=== PATIENT | female | born 1985 | race Caucasian/White ===

== ENCOUNTER 2017-07-19 11:21 | Inpatient (IN) | payer OTHER ==
[~2017-07-19] VITALS: Ht 157.5 cm; Wt 77.1 kg
[2017-07-19] MEDS ORDERED: MAGNESIUM HYDROXIDE 30 ML LIQUID UDC PO PRN (13:15)
[2017-07-19] MEDS ORDERED: LOPERAMIDE HCL 2 MG CAPSULE PO PRN ×2 (13:15)
[2017-07-19] MEDS ORDERED: DICYCLOMINE HCL 20 MG TABLET PO PRN (13:15)
[2017-07-19] MEDS ORDERED: BUPRENORPHINE HCL 2 MG TAB.SUBL SL PRN (13:15)
[2017-07-19] MEDS ORDERED: ONDANSETRON 4 MG/2 ML VIAL IM PRN (13:15)
[2017-07-19] MEDS ORDERED: NICOTINE 14 MG/24HR PATCH TD PRN (13:15)
[2017-07-19] MEDS ORDERED: MIRALAX 17 GM POWD.PACK PO PRN (13:15)
[2017-07-19] MEDS ORDERED: ACETAMINOPHEN 325 MG TABLET PO PRN (13:15)
[2017-07-19] MEDS ORDERED: MAG HYDROX/AL HYDROX/SIMETH 30 ML LIQUID UDC PO PRN (13:15)
[2017-07-19] MEDS ORDERED: ONDANSETRON ODT 4 MG TAB.RAPDIS SL PRN (13:15)
[2017-07-19] MEDS ORDERED: CEPH500C2 PO (13:31)
[2017-07-19] MEDS ORDERED: SULF1TAB48 PO (13:31)
[2017-07-19] MEDS ORDERED: IBUP-1953 PO (13:31)
[2017-07-19] MEDS ORDERED: HYDR-3028 PO (13:31)
[2017-07-19 13:45] LABS: *URINE HCG, QUAL NEGATIVE (NEGATIVE)
[2017-07-19 13:56] LABS: *AMPHETAMINE, URINE NEGATIVE (NEGATIVE); *BARBITURATE, URINE POSITIVE (NEGATIVE); *CANNABINOID, URINE NEGATIVE (NEGATIVE); *COCCAINE, URINE NEGATIVE (NEGATIVE); *OPIATE, URINE POSITIVE (NEGATIVE); *PHENCYCLIDINE SCREEN,URINE NEGATIVE (NEGATIVE)
[2017-07-19] MEDS: METHOCARBAMOL 750 MG TABLET PO PRN (14:51)
[2017-07-19] MEDS: CLONIDINE HCL 0.1 MG TABLET PO PRN (14:51)
[2017-07-19] MEDS: BUPRENORPHINE HCL 2 MG TAB.SUBL SL SCH ×3 (14:54→20:22)
--- NOTE | 2017-07-19 14:55 | NUR ---
ADMISSION NOTE Pt is a 31 year old female, admitted on 07/19/17 at 1300 for Heroin and Meth medically supervised withdrawals. Pts skin and body check completed, no contraband found, Pt has a rash all over body with treatment prescribed. Pt awake, alert, oriented x 4, gait steady, pt is ambulatory without assistance. Pt weights 170 pounds and her height is 52. Denies any history of seizures. Pt escorted to room 311 where the rest of assessment was completed. Pt is primary source of information, information consistent, speech coherent. Pt brought home medications which have been reconciled. Pt refused PNA Vaccinations stating that she will receive it somewhere else. Pt states that she does not have a PCP and pt denies having a psychiatrist or a psychologist. Pt requested to be full code, regular diet on fall precautions, Pt denies any allergies. Her last BM was on 07/19/17. Pt states that she lives in an apartment with her cousin. Pt states she smokes about 5 cigarettes a day. Pt denies being admitted to a hospital in the past 30 days, she did however visited the ER for a sore throat, she is currently on PO Antibiotics. Pt is not a candidate for MRSA. Pts initial vital signs are BP: 130/88, Temp: 98.3, Pulse: 96 SPO2: 98% RR:18 and states that she has 0/10 pain. Pts initial COWS was a 11. Pt reports PMH of Anxiety, Depression, ADHD , HTN sore throat . Pts longest sobriety lasted 7 months which was from September 2016 to her current relapse. Pt stated that she does not attend AA meetings. Pt reported family history of abuse, her uncle is a heroin addict and her sister is an alcoholic. Pt denies any suicidal or homicidal ideations. Substance use Hx: 1. Heroin started to use at age 19. Pt uses this drug by injecting herself through IV, she currently been using for 2 weeks daily about 2 grams a day. Last time used was about 3 days ago 2. Meth started when she was 24 years old. Pt used this drug by smoking it and snorting it., she currently been using for 2 weeks daily about 1/2grama day . Last time used was about 3 days ago. Rehab history: [facility], [facility], pt was not able to recall the dates because it was a long time ago. Pt cooperative, appears depressed and somewhat uncomfortable, reports moderate anxiety. Educated on relaxation techniques (deep breathing) pt verbalized understanding. Pt denies SI/HI at this time, denies hallucinations. Skin warm and moist from sweat. Eyes PERLLA, tremors noted and felt. Pt denied tingling. All extremities with full ROM. Lung sounds wheezing bilaterally, non-productive cough present , pt denies SOB. Heart rate regular. Cap refill <3 sec. No edema noted. Abdomen soft, round, bowel sounds active x 4, non tender. Pt denies urinary difficulties, urine was provided and sent to lab. Pt oriented to unit, room, equipment, shown how to use call light, provided returned demonstration. Fall precautions in place. Side rails up x2, call light within reach, bed locked in low position. MD contacted and aware of patients condition. All admitting orders have been placed.
[2017-07-19] MEDS: [UNRECOGNIZED DRUG - OTHER] PO SCH ×2 (15:48→20:21)
[2017-07-19] MEDS: CEPHALEXIN PO SCH ×2 (15:48→20:21)
[2017-07-19 16:00] VITALS: BP 140/77
[2017-07-19 17:46] LABS: BASOPHILS % (AUTO) 0.5 % (0.0-2.0); EOSINOPHILS # (AUTO) 0.3 K/uL (0.0-0.7); EOSINOPHILS % (AUTO) 4.6 % (0.0-7.0); HEMATOCRIT 33.4 % (31.2-41.9); HEMOGLOBIN 11.2 g/dL (10.9-14.3); LYMPHOCYTES # (AUTO) 1.6 K/uL (20.0-40.0); LYMPHOCYTES % (AUTO) 25.4 % (20.5-51.5); MEAN CORPUSCULAR HEMOGLOBIN 28.6 uug (24.7-32.8); MEAN CORPUSCULAR HGB CONC 34 g/dL (32.3-35.6); MEAN CORPUSCULAR VOLUME 85.1 fL (75.5-95.3); MONOCYTES # (AUTO) 0.7 K/uL (2.0-10.0); MONOCYTES % (AUTO) 10.3 % (0.0-11.0); NEUTROPHILS # (AUTO) 3.8 K/uL (1.8-8.9); NEUTROPHILS % (AUTO) 59.2 % (38.5-71.5); PLATELET COUNT (AUTO) 434 K/uL (179-408); RED BLOOD CELL COUNT(AUTO) 3.92 MIL/uL (3.63-4.92); WHITE BLOOD COUNT (AUTO) 6.4 K/uL (3.8-11.8)
[2017-07-19] MEDS: NEOMY/BACITRAC/POLYMI OINT 28.35 GM TUBE TOP SCH (17:53)
[2017-07-19 17:57] LABS: ALANINE AMINOTRANSFERASE 62 U/L (14-59); ALKALINE PHOSPHATASE 85 U/L (50-136); ASPARTATE AMINOTRANSFERASE 30 U/L (15-37); BILIRUBIN,TOTAL 0.2 mg/dL (0.2-1.0); CARBON DIOXIDE 24 mmol/L (21-32); CHLORIDE 105 mmol/L (98-107); CREATININE 0.6 mg/dL (0.6-1.3); GLUCOSE 104 mg/dL (74-106); MAGNESIUM 1.6 mg/dL (1.8-2.4); POTASSIUM 3.5 mmol/L (3.5-5.1); TOTAL PROTEIN, SERUM 6.7 g/dL (6.4-8.2); UREA NITROGEN, BLOOD 6 mg/dL (7-18)
[2017-07-19 18:03] LABS: THYROID STIMULATING HORMONE 0.292 mIU/mL (0.358-3.740)
--- NOTE | 2017-07-19 19:20 | NUR ---
End Of Shift Report given to film processing shift supervisor nurse. VS monitored closely q 4 hours. Withdrawal symptoms were closely monitored. Initial COWS 11. Patient encouraged adequate PO fluid intake as tolerated. Patient presented with tremors sweats irritability and anxiety. Last COWS 13. Per patient, Subutex has been helping her with her withdrawal symptoms. Pt ate all of her meals. Pt received PRN clonidine 0.1mg, Subutex 4mg and Robaxin 750mg. All medications were effective. Patient encouraged to attend group therapies/sessions to learn new coping skills to recent relapse, patient denies SI/HI. Participated in group and therapy sessions. All needs met and attended
[2017-07-19 20:00] VITALS: BP 124/83
--- NOTE | 2017-07-19 20:00 | NUR ---
START OF SHIFT NOTE RECEIVED REPORT FROM DAY SHIFT NURSE. PATIENT IS A 31 YEAR OLD YEAR OLD FEMALE NEWLY ADMITTED FOR HEROIN AND METH WITHDRAWAL. PATIENT WAS PLACED ON 5 DAY SUBUTEX MODIFIED TAPER, STARTED TODAY. PATIENT WAS IN ER PRIOR TO ADMISSION DUE TO SORE THROAT. PATIENT IS ON PO ANTIBIOTIC. PRN SUBUTEX, ROBAXIN AND CLONIDINE GIVEN. LAST . RECEIVED PATIENT IN THE ROOM WITH SEVERE ANXIETY 8/10, RESTLESS, IRRITABLE, AGITATED, EMOTIONAL, SWEATING, C/O STUFFY NOSE, ABDOMINAL CRAMPING AND ITCHING. RELAXATION TECHNIQUE PROVIDED. SAFETY MEASURES IN PLACE. CALL LIGHT IN REACH. WILL CONTINUE TO MONITOR
[2017-07-19] MEDS: LACTOBACILLUS RHAMNOSUS GG 1 EACH CAPSULE PO SCH (20:19)
[2017-07-19] MEDS: GABAPENTIN 300 MG CAPSULE PO SCH (20:19)
[2017-07-19] MEDS: PROPRANOLOL HCL 20 MG TABLET PO SCH (20:20)
[2017-07-19] MEDS: [UNRECOGNIZED DRUG - OTHER] PO SCH (20:21)
[2017-07-19] MEDS: TRIMETHOPRIM PO SCH (20:21)
[2017-07-19] MEDS: SULFAMETHOXAZOLE PO SCH (20:21)
[2017-07-19] MEDS ORDERED: PATIENT MAY USE OWN MED- MD OK PO SCH (21:00)
[2017-07-19] MEDS ORDERED: LORAZEPAM 1 MG TABLET PO SCH (21:00)
[2017-07-19 21:23] LABS: ETHANOL < 3 MG/DL (0-0)
[2017-07-20] VITALS: BP 120/76
--- NOTE | 2017-07-20 | NUR ---
COWS DEFERRED PATIENT IN BED WITH EYES CLOSED. RESPIRATION EVEN AND UNLABORED. SAFETY MEASURES IN PLACE. CALL LIGHT IN REACH. WILL CONTINUE TO MONITOR.
[2017-07-20 04:00] VITALS: BP 127/92
--- NOTE | 2017-07-20 04:00 | NUR ---
COWS DEFERRED PATIENT IN BED WITH EYES CLOSED. RESPIRATION EVEN AND UNLABORED. SAFETY MEASURES IN PLACE. CALL LIGHT IN REACH. WILL CONTINUE TO MONITOR
--- NOTE | 2017-07-20 04:35 | NUR ---
NOTE: PATIENT WAS FOUND SITTING INSIDE THE BATHROOM FLOOR FACING THE TOILET BOWL. PATIENT WAS AROUSABLE AND ASSISTED TO BED. PATIENT ABLE TO AMBULATE WITH STEADY GAIT. NO C/O PAIN , VERBALIZED " I AM NOT HURTING BUT I'M SURE I DID NOT FALL". VITAL SINGS CHECKED. VS BP-127/92 P-102 T-99.0 R-17 PA-0/10. SpO2 AT 8 5 IN RA. WILL CONTINUE TO MONITOR.
--- NOTE | 2017-07-20 07:41 | NUR ---
END OF SHIFT NOTE PATIENT SLEPT 9 HOURS. FLUID INTAKE OF 796 ML. VOIDED X 2. NO BM. CONTINUE SUBUTEX MODIFIED TAPER, STARTED TODAY. PATIENT IS ON PO ANTIBIOTIC, ENCOURAGE FLUIDS. PATIENT IN THER ROOM MOST OF THE SHIFT. PATIENT WAS FOUND SITTING INSDE TH BATHROOM FLOOR. NO INJURY NOTED. ABLE TO AMBULATE. RELAXATION TECHNIQUE PROVIDED. SAFETY MEASURES IN PLACE. CALL LIGHT IN REACH. WILL CONTINUE TO MONITOR. LAST CIWA 14.
[2017-07-20 08:00] VITALS: BP 127/82
[2017-07-20] MEDS ORDERED: HYDROXYZINE PAMOATE 25 MG CAPSULE PO PRN (09:00)
[2017-07-20] MEDS ORDERED: MAGNESIUM OXIDE 400 MG TABLET PO ONE (09:00)
[2017-07-20] MEDS ORDERED: TUBERCULIN,PURIF.PROT.DERIV. 5 TU/0.1 ML TEST ID ONE (09:00)
[2017-07-20] MEDS: BUPRENORPHINE HCL 2 MG TAB.SUBL SL SCH ×3 (09:45→21:06)
[2017-07-20] MEDS: GABAPENTIN 300 MG CAPSULE PO SCH ×3 (09:45→21:06)
[2017-07-20] MEDS: PROPRANOLOL HCL 20 MG TABLET PO SCH ×2 (09:45→21:05)
[2017-07-20] MEDS: [UNRECOGNIZED DRUG - OTHER] PO SCH ×2 (09:46→21:05)
[2017-07-20] MEDS: LACTOBACILLUS RHAMNOSUS GG 1 EACH CAPSULE PO SCH ×2 (09:46→21:05)
[2017-07-20] MEDS: SULFAMETHOXAZOLE PO SCH ×2 (09:46→21:05)
[2017-07-20] MEDS: TRIMETHOPRIM PO SCH ×2 (09:46→21:05)
[2017-07-20] MEDS: CEPHALEXIN PO SCH ×3 (09:47→21:05)
[2017-07-20] MEDS: [UNRECOGNIZED DRUG - OTHER] PO SCH ×3 (09:47→21:05)
[2017-07-20] MEDS: NEOMY/BACITRAC/POLYMI OINT 28.35 GM TUBE TOP SCH ×2 (09:47→17:08)
--- NOTE | 2017-07-20 10:00 | NUR ---
START OF SHIFT Received report from night warehouse selector nurse. No PRN given on night warehouse selector. Pt slept for a total of 9 HRS. On Subutex taper. Patients most recent COWS on AM shift was 9 , complains of tremors, anxiety, dilated pupil, body aches, sweating. Denies any SOB, chest pain, nausea, vomiting, diarrhea at this time. Med compliant. Call lights within reach and bed at low setting. Will continue to monitor patient.
[2017-07-20 12:00] VITALS: BP 133/83
[2017-07-20 16:00] VITALS: BP 129/89
--- NOTE | 2017-07-20 18:57 | NUR ---
END OF SHIFT Patient is on Subutex taper. Patient has skin rashes on BUE and buttocks area, antibiotic ointment applied as ordered. Patient did not attend any group activities, stayed in her room for the most part. Last COWS was 7. Patient reports tremors, anxiety, stuffy nose and sweating. No PRN given. All needs met at this time. Call lights within reach and bed at low setting. snuff driershift commander continue to monitor patient.
--- NOTE | 2017-07-20 19:00 | NUR ---
Start of Shift Patient Received. Patient is in her room sleeping. Breathing even and non labored. Per endorsement, patient continues on a modified 5 day Subutex taper. Patient continues on ATB home medications and Triple ATB topically for generalized open lesions throughout body. No PRN Medications administered. Last noted COWS 7. Patient is noted to be isolative to room and non compliant with group or social activities. All needs attended to promptly. Will continue plan of care as ordered.
[2017-07-20 20:30] VITALS: BP 132/89
[2017-07-21 00:41] VITALS: BP 125/82
[2017-07-21 04:05] VITALS: BP 122/78
[2017-07-21] MEDS: IBUPROFEN 600 MG TABLET PO PRN ×2 (04:37→20:20)
[2017-07-21] MEDS: METHOCARBAMOL 750 MG TABLET PO PRN (04:37)
--- NOTE | 2017-07-21 04:40 | NUR ---
PRN Medication Administration Patient is noted awake and verbalizing increased pain due to headache, generalized body aches and muscle spasms, and increased anxiety. PRN Motrin, Robaxin, and Vistaril administered. Will continue to monitor.
--- NOTE | 2017-07-21 05:41 | NUR ---
PRN Medication Reassessment Patient is noted in bed sleeping. Breathing even and non labored. No signs of restlessness or discomfort noted. PRN Motrin, Robaxin, and Vistaril noted to be effective. Will continue to monitor.
--- NOTE | 2017-07-21 07:18 | NUR ---
End of Shift Patient is in bed sleeping. Breathing even and non labored. Patient continues on a modified Subutex taper. She also continues on ATB home medications and triple ATB topically for generalized open lesions. Patient received PRN Motrin, Robaxin, and Vistaril with medications noted to be effective. She is noted to be disheveled with a flat affect. Room appears unkept with blankets and clothes on the floor. Food and wrappers noted throughout her bedside table. Last noted COWS 11. Patient slept a total of 6 hours. All needs attended to promptly. Will endorse to continue plan of care as ordered.
[2017-07-21 08:00] VITALS: BP 138/90
[2017-07-21 08:15] LABS: CREATININE 0.7 mg/dL (0.6-1.3); MAGNESIUM 1.8 mg/dL (1.8-2.4); PHOSPHOROUS 4.7 mg/dL (2.5-4.9); POTASSIUM 3.8 mmol/L (3.5-5.1)
--- NOTE | 2017-07-21 08:15 | NUR ---
START OF SHIFT: RECEIVED PT AA/O X 4. SHE PRESENTS WITH BLUNTED AFFECT AND DEPRESSED MOOD. SHE REPORTS BODY ACHES, ANXIETY,SWEATS,CHILLS AND RESTLESSNESS. COWS 11. SUBUTEX TAPER IN PROGRESS TO MANAGE S/S OF W/D. ENCOURAGED GROUP ATTENDANCE TO IMPROVE COPING SKILLS AND PREVENT RELAPSE.. ABT THERAPY IN PROGRESS TO MANAGE SKIN RASH. WILL CONTINUE TO MONITOR AND MANAGE S/S OF W/D.
[2017-07-21 08:27] LABS: THYROID STIMULATING HORMONE 1.098 mIU/mL (0.358-3.740)
[2017-07-21] MEDS: [UNRECOGNIZED DRUG - OTHER] PO SCH ×3 (08:31→20:18)
[2017-07-21] MEDS: CEPHALEXIN PO SCH ×3 (08:31→20:18)
[2017-07-21] MEDS: [UNRECOGNIZED DRUG - OTHER] PO SCH ×2 (08:32→20:18)
[2017-07-21] MEDS: TRIMETHOPRIM PO SCH ×2 (08:32→20:18)
[2017-07-21] MEDS: GABAPENTIN 300 MG CAPSULE PO SCH ×3 (08:32→20:08)
[2017-07-21] MEDS: SULFAMETHOXAZOLE PO SCH ×2 (08:32→20:18)
[2017-07-21] MEDS: PROPRANOLOL HCL 20 MG TABLET PO SCH ×2 (08:32→20:08)
[2017-07-21] MEDS: LACTOBACILLUS RHAMNOSUS GG 1 EACH CAPSULE PO SCH ×2 (08:33→20:08)
[2017-07-21] MEDS: NEOMY/BACITRAC/POLYMI OINT 28.35 GM TUBE TOP SCH ×2 (08:35→16:46)
[2017-07-21] MEDS ORDERED: BUPRENORPHINE HCL 2 MG TAB.SUBL SL SCH (09:00)
[2017-07-21] MEDS: VENLAFAXINE XR 150 MG CAP.SR.24H PO SCH (09:39)
[2017-07-21 11:11] LABS: HEPATITIS B SURFACE AG Negative (Negative)
[2017-07-21] MEDS ORDERED: PERMETHRIN 5% CREAM 60 GM TUBE TP ONE (11:15)
[2017-07-21 12:00] VITALS: BP 137/92
--- NOTE | 2017-07-21 12:05 | NUR ---
NEW ORDER FOR ALAMITE CREAM TO BE APPLIED TO BODY. PT IS TO STAY IN ROOM FOR 12 HOURS AND CAN SHOWER AFTER 12 HOURS. EDUCATED PT ON MEDICATION AND APPLIED ORDERED. PT EXPRESSED VERBAL UNDERSTANDING OF EDUCATION.
[2017-07-21] MEDS ORDERED: NICOTINE POLACRILEX 4 MG GUM-PK OF TEN BC PRN (13:30)
[2017-07-21] MEDS: NICOTINE POLACRILEX 4 MG GUM-PK OF TEN BC PRN ×3 (14:35→22:51)
[2017-07-21] MEDS: BUPRENORPHINE HCL 2 MG TAB.SUBL SL SCH ×2 (14:35→20:08)
[2017-07-21 16:00] VITALS: BP 135/93
[2017-07-21] MEDS ORDERED: LACT1CAP57 PO (16:35)
[2017-07-21] MEDS ORDERED: PROP20TA19 PO (16:35)
[2017-07-21] MEDS ORDERED: VENL150C2 PO (16:35)
[2017-07-21] MEDS ORDERED: GABA-534 PO ×2 (16:35)
[2017-07-21] MEDS ORDERED: DIPH50CA37 PO (16:35)
[2017-07-21] MEDS ORDERED: CLON0.1T14 PO (16:35)
[2017-07-21] MEDS ORDERED: METH-406 PO (16:35)
[2017-07-21] MEDS ORDERED: DICY20TA28 PO (16:35)
[2017-07-21] MEDS ORDERED: HYDR-3895 PO (16:35)
[2017-07-21] MEDS ORDERED: IBUP-1955 PO (16:35)
--- NOTE | 2017-07-21 18:39 | NUR ---
END OF SHIFT: PT CONTINUES ON SUBUTEX TAPER TO MANAGE S/S OF W/D WHICH INCLUDE BODY ACHES ,ANXIETY,CHILLS,SWEATS AND RESTLESSNESS. LAST COWS 7/ SHE STATES THE DETOX MEDS ARE EFFECTIVE IN REDUCING S/S OF W/D. ALAMITE CREAM APPLIED AND PT IS CONFINED TO ROOM UNTIL MIDNIGHT. NICOTINE GUM AVAILABLE PRN. SHE RESTED ON AND OFF MOST OF SHIFT. SHE IS COMPLIANT WITH MEDS AND TREATMENT PLAN. WILL PASS SHIFT REPORT TO ONCOMING NIGHT NURSE.
--- NOTE | 2017-07-21 19:05 | NUR ---
Start of Shift Patient Received. Patient is in her room, awake, alert and verbally responsive. Breathing even and non labored. Per endorsement, patient was placed on Room Restriction, Patio Restriction, and Contact Isolation. New order for Elimite cream ordered and Applied. Patient is able to shower at 0030. New order obtained for Nicotine gum Q2H for increased nicotine cravings. Patient continues on a modified Subutex taper. She also continues on ATB home medications and triple ATB topically for generalized open lesions. Patient received PRN Nicotine Gum x1 and noted effective. Last noted COWS 7. All needs attended to promptly. Will continue plan of care as ordered.
[2017-07-21 20:00] VITALS: BP 143/97
[2017-07-21] MEDS: BACLOFEN 10 MG TABLET PO SCH (20:08)
--- NOTE | 2017-07-21 20:20 | NUR ---
PRN Medication Administration Patient is noted verbalizing increased nicotine cravings and pain due to headache. PRN Motrin and Nicotine Gum administered with routine medications. Will continue to monitor.
--- NOTE | 2017-07-21 22:20 | NUR ---
PRN Medication Reassessment Patient is noted in bed sleeping. Breathing even and non labored. No restlessness or facial grimacing noted. PRN Motrin and Nicotine noted to be effective. Will continue to monitor.
--- NOTE | 2017-07-21 22:53 | NUR ---
PRN Medication Administration Patient noted awake and verbalizing increased nicotine cravings. PRN Nicotine Gum administered. Will continue to monitor.
--- NOTE | 2017-07-21 23:50 | NUR ---
PRN Medication Reassessment Patient is noted in bed sleeping. Breathing even and non labored. PRN Nicotine Gum noted to be effective. Will continue to monitor.
[2017-07-22 00:20] VITALS: BP 141/82
[2017-07-22] MEDS: diphenhydrAMINE 50 MG CAPSULE PO PRN (01:19)
[2017-07-22] MEDS: METHOCARBAMOL 750 MG TABLET PO PRN (01:19)
[2017-07-22] MEDS: HYDROXYZINE PAMOATE 25 MG CAPSULE PO PRN ×2 (01:19→15:23)
[2017-07-22] MEDS: CLONIDINE HCL 0.1 MG TABLET PO PRN ×2 (01:20→15:39)
--- NOTE | 2017-07-22 01:20 | NUR ---
PRN Medication Administration Patient was awakened to shower due to application of elimite. Patient is noted with increased anxiety, body aches, restlessness, increased chills, agitation, and inability of falling back to sleep. PRN Robaxin, Benadryl, and Vistaril administered. Will continue to monitor.
--- NOTE | 2017-07-22 01:20 | NUR ---
PRN Medication Reassessment patient is noted in bed sleeping. Breathing even and non labored. No signs of restlessness and facial grimacing. PRN Benadryl, Robaxin, Clonidine, and Vistaril noted to be effective. Will continue to monitor.
[2017-07-22 04:20] VITALS: BP 129/77
--- NOTE | 2017-07-22 05:50 | NUR ---
Behavioral Patient was noted to state "I need sleeping medication. I need me next dose of Ativan." Encouraged patient to attempt to get sleep and medications would be reviewed with MD. Patient is noted to be focused on PRN Ativan and when he will be receiving his next dose. Encouraged patient to focus on effective coping skills but patient noted to be passive.
--- NOTE | 2017-07-22 07:21 | NUR ---
End of Shift Patient is noted in bed sleeping. Breathing even and non labored. No signs of restlessness or discomfort. Patient continues on a modified Subutex taper. Patient received elimite topically, showered, and her room was changed from 311 to 315. Isolation was removed as per MD orders. Patient received PRN Nicotine Gum x2, Motrin, Clonidine, Benadryl, Robaxin, and Vistaril with medications noted to be effective. Last noted COWS 11. All needs attended to promptly. Will endorse to continue plan of care as ordered.
--- NOTE | 2017-07-22 07:54 | NUR ---
Start of shift- Patient is in bed sleeping. Respirations even and unlabored. No signs of restlessness or discomfort. Pt on a 5 day modified Subutex taper. Tolerating well. Last night Patient received PRN Nicotine Gum x2, Motrin, Clonidine, Benadryl, Robaxin, and Vistaril with medications noted to be effective. PM shift notes Pt may have night terrors. Will inform MD today. Last noted COWS 10 at 0400. Pt slept 4 hours. Pt reports NKA, FULL CODE. All safety precautions in place. Call light within reach. Will continue to monitor for withdrawal symptoms.
[2017-07-22 08:00] VITALS: BP 130/89
[2017-07-22] MEDS: NEOMY/BACITRAC/POLYMI OINT 28.35 GM TUBE TOP SCH (09:00)
[2017-07-22] MEDS: CEPHALEXIN PO SCH ×3 (09:54→20:55)
[2017-07-22] MEDS: TRIMETHOPRIM PO SCH ×2 (09:54→20:55)
[2017-07-22] MEDS: [UNRECOGNIZED DRUG - OTHER] PO SCH ×2 (09:54→20:55)
[2017-07-22] MEDS: VENLAFAXINE XR 150 MG CAP.SR.24H PO SCH (09:54)
[2017-07-22] MEDS: [UNRECOGNIZED DRUG - OTHER] PO SCH ×3 (09:54→20:55)
[2017-07-22] MEDS: SULFAMETHOXAZOLE PO SCH ×2 (09:54→20:55)
[2017-07-22] MEDS: GABAPENTIN 300 MG CAPSULE PO SCH ×3 (09:54→20:55)
[2017-07-22] MEDS: LACTOBACILLUS RHAMNOSUS GG 1 EACH CAPSULE PO SCH ×2 (09:54→20:55)
[2017-07-22] MEDS: PROPRANOLOL HCL 20 MG TABLET PO SCH ×2 (09:55→20:55)
[2017-07-22] MEDS: BACLOFEN 10 MG TABLET PO SCH ×3 (09:55→20:55)
[2017-07-22] MEDS: BUPRENORPHINE HCL 2 MG TAB.SUBL SL SCH ×3 (09:55→20:56)
[2017-07-22] MEDS ORDERED: PRAZOSIN HCL 1 MG CAPSULE PO PRN ×2 (11:30→21:00)
[2017-07-22 12:00] VITALS: BP 143/80
--- NOTE | 2017-07-22 15:25 | NUR ---
PRN HYDRALAZINE 50 MG PO FOR ANXIETY. PT C/O SEVERE ANXIETY AND IS IRRITABLE.
--- NOTE | 2017-07-22 15:40 | NUR ---
PRN CATAPRES 0.1MG PO FOR ANXIETY. PT EXTREMELY ANXIOUS AND HYDRALAZINE NOT EFFECTIVE YET.
[2017-07-22 16:00] VITALS: BP 150/90
--- NOTE | 2017-07-22 16:30 | NUR ---
Reassess hydralazine and catapres. Pt states anxiety is better. She is calmer and less fidgety.
--- NOTE | 2017-07-22 18:32 | NUR ---
End of shift- Patient A&O X3. Resp even and unlabored. Pt on a 5 day modified Subutex taper. Tolerating well. Pt was isolative and withdrawn. Pt emotional and melancholic. Body rash improved, pt denies excessive itchiness. PRN administered today; Vistaril, Catapres. Pt appetite fair today. Patient encouraged to attend group therapies/sessions to learn new coping skills to recent relapse, patient denies SI/HI. Pt did not participate in group and therapy sessions. At 1600 last COWS 10. Pt reports NKA, FULL CODE. Adequate PO fluid intake 1342 ml, void X 5, no BM. All safety precautions in place. Call light within reach. Will continue to monitor for withdrawal symptoms and endorse to PM shift.
--- NOTE | 2017-07-22 19:00 | NUR ---
Start of Shift Patient Received. Patient is in her bed awake, alert and verbally responsive. Breathing even and non labored. Per endorsement, patient was noted to be isolative and withdrawn to room. She was noted to be emotional. Skin has noted to improve. Patient received PRN Vistaril and Clonidine with medication noted to be effective. Last noted COWS 10. All needs attended to promptly. Will continue plan of care as ordered.
[2017-07-22 20:52] VITALS: BP 150/93
[2017-07-23 00:04] VITALS: BP 141/94
[2017-07-23] MEDS: diphenhydrAMINE 50 MG CAPSULE PO PRN (00:09)
[2017-07-23] MEDS: METHOCARBAMOL 750 MG TABLET PO PRN (00:09)
[2017-07-23] MEDS: HYDROXYZINE PAMOATE 25 MG CAPSULE PO PRN (00:09)
[2017-07-23] MEDS: CLONIDINE HCL 0.1 MG TABLET PO PRN ×2 (00:09→13:09)
--- NOTE | 2017-07-23 00:12 | NUR ---
PRN Medication Administration Patient is noted verbalizing inability of falling asleep, increased muscle spasms, increased anxiety, increased chills and sweats. PRN Clonidine, Vistaril, benadryl, and Robaxin administered. Will continue to monitor.
--- NOTE | 2017-07-23 01:10 | NUR ---
PRN Medication Reassessment Patient is noted in bed sleeping. breathing even and non labored. No signs of restlessness or discomfort noted. No facial grimacing noted. PRN Clonidine, Vistaril, Benadryl, and Robaxin noted to be effective. Will continue to monitor.
[2017-07-23 04:15] VITALS: BP 119/82
--- NOTE | 2017-07-23 07:00 | NUR ---
End of Shift Patient is noted in bed sleeping. Breathing even and non labored. Patient continues to be isolative and withdrawn to room. She received PRN Clonidine, Vistaril, Robaxin, and Benadryl with medications noted to be effective. Last noted COWS 8. Patient noted to sleep a total of 5. All needs attended to promptly. Will endorse to continue plan of care as ordered.
--- NOTE | 2017-07-23 07:32 | NUR ---
Start of shift- Patient is in bed sleeping. Respirations even and unlabored. Arousable to light touch. No signs of restlessness or discomfort. Pt on a 5 day modified Subutex taper. Tolerating well. Pt slept 5 hours last night. Last noted COWS 8 at 0400. Pt reports NKA, FULL CODE. All safety precautions in place. Call light within reach. Will continue to monitor for withdrawal symptoms.
[2017-07-23 08:00] VITALS: BP 129/84
[2017-07-23] MEDS ORDERED: BUPRENORPHINE HCL 2 MG TAB.SUBL SL SCH (09:00)
[2017-07-23] MEDS: GABAPENTIN 300 MG CAPSULE PO SCH ×3 (09:25→20:52)
[2017-07-23] MEDS: VENLAFAXINE XR 150 MG CAP.SR.24H PO SCH (09:25)
[2017-07-23] MEDS: BACLOFEN 10 MG TABLET PO SCH (09:25)
[2017-07-23] MEDS: PROPRANOLOL HCL 20 MG TABLET PO SCH ×2 (09:25→20:52)
[2017-07-23] MEDS: LACTOBACILLUS RHAMNOSUS GG 1 EACH CAPSULE PO SCH ×2 (09:25→20:52)
[2017-07-23] MEDS: [UNRECOGNIZED DRUG - OTHER] PO SCH ×2 (09:26→20:54)
[2017-07-23] MEDS: SULFAMETHOXAZOLE PO SCH ×2 (09:26→20:54)
[2017-07-23] MEDS: [UNRECOGNIZED DRUG - OTHER] PO SCH ×3 (09:26→20:53)
[2017-07-23] MEDS: CEPHALEXIN PO SCH ×3 (09:26→20:53)
[2017-07-23] MEDS: TRIMETHOPRIM PO SCH ×2 (09:26→20:54)
[2017-07-23 12:00] VITALS: BP 122/78
--- NOTE | 2017-07-23 13:10 | NUR ---
PRN Tylenol 650 mg po for headache #5/10 PRN Catapres 0.1 mg PO for anxiety
--- NOTE | 2017-07-23 13:16 | NUR ---
PRN MIRALAX PO FOR CONSTIPATION.
--- NOTE | 2017-07-23 14:10 | NUR ---
Reassess Tylenol, Pt states headache now #0/10
[2017-07-23] MEDS: BACLOFEN 20 MG TABLET PO SCH ×2 (15:29→20:53)
[2017-07-23] MEDS: BUPRENORPHINE HCL 2 MG TAB.SUBL SL SCH ×2 (15:30→20:53)
[2017-07-23 16:00] VITALS: BP 114/64
--- NOTE | 2017-07-23 16:20 | NUR ---
REASSESS MIRALAX, PT HAD LARGE SOFT FORMED BM.
--- NOTE | 2017-07-23 18:44 | NUR ---
End of shift- Patient A&O X3. Resp even and unlabored. Pt on a 5 day modified Subutex taper. Tolerating well. Pt was isolative and withdrawn. Pt emotional and melancholic. Body rash improved, pt denies excessive itchiness. PRN administered today; Tylenol, Catapres and Miralax. Pt appetite good today. Pt c/o constipation. Patient encouraged to attend group therapies/sessions to learn new coping skills to recent relapse, patient denies SI/HI. Pt did not participate in group and therapy sessions. At 1600 last COWS 10. Pt reports NKA, FULL CODE. PO fluid intake 1151 ml, void X 3, BM x1. All safety precautions in place. Call light within reach. Will continue to monitor for withdrawal symptoms and endorse to PM shift.
--- NOTE | 2017-07-23 19:30 | NUR ---
Start of Shift Patient received sleeping in bed. Breathing is even and non labored, no s/s of distress noted. Per endorsement,Pt has been in bed most of time. Skin has noted to improve.PRN administered today; Tylenol, Catapres and Miralax and were effective; vital signs have been stable per day shift.Pt has NKA,on full code status and regular diet. All safety measures in place,call light within reach, Will continue to monitor.
[2017-07-23 20:00] VITALS: BP 114/64
[2017-07-24] VITALS: BP 137/92
[2017-07-24] MEDS: diphenhydrAMINE 50 MG CAPSULE PO PRN (01:30)
[2017-07-24] MEDS: CLONIDINE HCL 0.1 MG TABLET PO PRN (01:31)
--- NOTE | 2017-07-24 01:33 | NUR ---
PRN CLONIDINE AND BENADRYL GIVEN ORDERED FOR ANXIETY/DIAPHORESIS AND INSOMNIA RESPECTIVELY.WILL MONITOR.
--- NOTE | 2017-07-24 02:30 | NUR ---
PRN F/U PT IS RESTING IN BED WITH EYES CLOSED,BREATHING IS EVEN AND NON LABORED,ALL SAFETY MEASURES IN PLACE.WILL CONTINUE TO MONITOR.
[2017-07-24 04:00] VITALS: BP 125/79
--- NOTE | 2017-07-24 04:00 | NUR ---
COWS DEFERRED D/T PT BEING ASLEEP.ALL SAFETY MEASURES IN PLACE,BREATHING IS EVEN AND NON LABORED,WILL CONTINUE TO MONITOR.
--- NOTE | 2017-07-24 06:41 | NUR ---
END OF SHIFT Pt remained in bed most of time, up and out of room for needs only. Breathing is even and non labored. Skin has noted to improve.PRN Clonidine and Benadryl were given and were effective; vital signs have been stable.Last COWS=7. Pt slept intermittently for 6 hours,fluid intake was 1029 mls, voided x 3 and had 1 b/m. Pt has NKA, on full code status and regular diet. All safety measures in place ,call light within reach, Will continue to monitor.
[2017-07-24 08:00] VITALS: BP 128/86
--- NOTE | 2017-07-24 08:00 | NUR ---
START OF SHIFT NOTE Received report from night nurse, 31 year old female admitted for Heroin/Meth withdrawal. Patient continued with her Subutex taper tolerating well. Per endorsement patient received PRN Benadryl,Clonidine effective per night nurse, last COWS score 7, slept for 6 hours. Received patient asleep, responsive to verbal and tactile stimuli. Breathing normal no SOB noted. Skin intact warm and dry tot touch. Safety measures in place. will continue to monitor.
[2017-07-24] MEDS: BACLOFEN 20 MG TABLET PO SCH ×3 (08:22→20:58)
[2017-07-24] MEDS: LACTOBACILLUS RHAMNOSUS GG 1 EACH CAPSULE PO SCH ×2 (08:22→20:58)
[2017-07-24] MEDS: VENLAFAXINE XR 150 MG CAP.SR.24H PO SCH (08:22)
[2017-07-24] MEDS: GABAPENTIN 300 MG CAPSULE PO SCH ×3 (08:22→20:58)
[2017-07-24] MEDS: PROPRANOLOL HCL 20 MG TABLET PO SCH ×2 (08:23→20:58)
[2017-07-24] MEDS: [UNRECOGNIZED DRUG - OTHER] PO SCH ×3 (08:25→20:59)
[2017-07-24] MEDS: TRIMETHOPRIM PO SCH ×2 (08:25→21:00)
[2017-07-24] MEDS: CEPHALEXIN PO SCH ×3 (08:25→20:59)
[2017-07-24] MEDS: [UNRECOGNIZED DRUG - OTHER] PO SCH ×2 (08:25→21:00)
[2017-07-24] MEDS: SULFAMETHOXAZOLE PO SCH ×2 (08:25→21:00)
[2017-07-24] MEDS ORDERED: BUPRENORPHINE HCL 2 MG TAB.SUBL SL SCH (09:00)
[2017-07-24 12:00] VITALS: BP 123/81
[2017-07-24] MEDS: KETOROLAC TROMETHAMINE 30 MG INJ IM PRN ×2 (14:06→21:16)
--- NOTE | 2017-07-24 14:06 | NUR ---
PRN Toradol 30mg IM administered to L deltoid for pain on L upper molar 01/31. call light within reach. Primary nurse to reassess.
--- NOTE | 2017-07-24 14:26 | NUR ---
TORADOL REASSESSMENT Per patient Toradol was effective pain lower to 4/10.
[2017-07-24 16:00] VITALS: BP 137/66
--- NOTE | 2017-07-24 19:09 | NUR ---
END OF SHIFT NOTE Gave report to night nurse, Patient admitted for Heroin and meth withdrawal. Patient completed her Subutex taper tolerated well. Patient presented with tooth ache, anxiety, agitation. Patient was given PRN Toradol IM noted to be effective. Patient set for discharge in AM. Patient was encouraged to participates in groups therapy session. Encourage diversional activities to alleviate anxiety. Patient noted participating in groups and activities. Patient denies any SI/HI. Safety measures in place. Patient endorsed to night nurse in stable condition.
[2017-07-24 20:00] VITALS: BP 142/84
--- NOTE | 2017-07-24 20:30 | NUR ---
Start of Shift Pt is a 31 y/o female admitted for opiate withdrawal.Pt is a/o x 4;has completed her Subutex taper and is scheduled for DC in the morning. Received resting in bed,presented with anxiety and restlessness. Breathing is even and non labored. Skin has noted to improve; vital signs have been stable per day shift.Last COWS=6.Pt has NKA,on full code status and regular diet. All safety measures in place,call light within reach, Will continue to monitor.
--- NOTE | 2017-07-24 21:19 | NUR ---
PRN TORADOL IM GIVEN ORDERED FOR C/O PAIN IN LEFT UPPER JAW.PAIN LEVEL IS 8/10.WILL CONTINUE TO MONITOR
--- NOTE | 2017-07-24 22:20 | NUR ---
PRN F/U PRN EFFECTIVE,PT STATES FEELING BETTER.PAIN DECREASED TO 1/10.WILL CONTINUE TO MONITOR.
[2017-07-25] VITALS: BP 138/82
--- NOTE | 2017-07-25 00:30 | NUR ---
PRN MOM GIVEN ORDERED FOR C/O CONSTIPATION.PO FLUIDS ENCOURAGED TOLERATED.WILL MONITOR FOR EFFECTIVENESS.
[2017-07-25 04:00] VITALS: BP 132/88
--- NOTE | 2017-07-25 06:45 | NUR ---
END OF SHIFT Pt is a 31 y/o female admitted for opiate withdrawal.Pt is a/o x 4;has completed her Subutex taper and is scheduled for DC this morning. Pt has been anxious most of time,in and out of bed all night,slept intermittently.Pt slept 5 hours, fluid intake was 869 mls ,voided x 1 .Breathing is even and non labored. Skin has noted to improve; vital signs have been stable per day shift.Last COWS=4. PRN meds Toradol and MOM were given;no B/M reported yet.Pt has NKA,on full code status and regular diet. All safety measures in place,call light within reach, Will endorse care to day shift nurse.
--- NOTE | 2017-07-25 07:51 | NUR ---
START OF SHIFT NOTE Received report from night nurse, 31 year old female admitted for Heroin/Meth withdrawal. Patient completed her Subutex taper tolerating well. Per endorsement patient received PRN Toradol and Benadryl effective per night nurse, last COWS score 7, slept for 6 hours. Received patient alert awake oriented x4, presented with anxiety, agitation, due for scheduled medications. Educated patient plan of care and rehab treatment. Patient verbalized understanding. Skin intact warm and dry tot touch. Safety measures in place. will continue to monitor.
[2017-07-25 08:00] VITALS: BP 144/97
[2017-07-25 08:19] VITALS: BP 144/97
[2017-07-25] MEDS: PROPRANOLOL HCL 20 MG TABLET PO SCH (08:19)
[2017-07-25] MEDS: VENLAFAXINE XR 150 MG CAP.SR.24H PO SCH (08:19)
[2017-07-25] MEDS: GABAPENTIN 300 MG CAPSULE PO SCH (08:19)
[2017-07-25] MEDS: LACTOBACILLUS RHAMNOSUS GG 1 EACH CAPSULE PO SCH (08:19)
[2017-07-25] MEDS: CEPHALEXIN PO SCH (08:20)
[2017-07-25] MEDS: TRIMETHOPRIM PO SCH (08:20)
[2017-07-25] MEDS: [UNRECOGNIZED DRUG - OTHER] PO SCH (08:20)
[2017-07-25] MEDS: SULFAMETHOXAZOLE PO SCH (08:20)
[2017-07-25] MEDS: [UNRECOGNIZED DRUG - OTHER] PO SCH (08:20)
[2017-07-25] MEDS: BACLOFEN 20 MG TABLET PO SCH (08:20)
--- NOTE | 2017-07-25 09:37 | NUR ---
DISCHARGE NOTE Patient has been discharged from [facility] Patient is in Stable condition, VS WNL. Denies suicidal and homicidal ideations at this time. All documentation has been completed, paperwork signed and dated. Pt left with all of her belongings, medications and prescriptions. Pt has been discharged from [facility] on 07/25/17 at 0937. has been Notified.
== END 2017-07-25 09:37 | disposition other institution (70) | DRG 895 ==
LOC: SRC 12:23
PROVIDERS: ADMIT Internal Medicine; ATTEND Internal Medicine
PROC: HZ2ZZZZ Detoxification Services for Substance Abuse Treatment (ICD-10-PCS; principal; 2017-07-19)
PROC: HZ31ZZZ Individual Counseling for Substance Abuse Treatment, Behavioral (ICD-10-PCS; 2017-07-21)
DX: F11.23 Opioid dependence with withdrawal (principal); E83.42 Hypomagnesemia; I15.9 Secondary hypertension, unspecified; L03.114 Cellulitis of left upper limb; L03.113 Cellulitis of right upper limb; L02.414 Cutaneous abscess of left upper limb; L02.413 Cutaneous abscess of right upper limb; F17.210 Nicotine dependence, cigarettes, uncomplicated; F41.9 Anxiety disorder, unspecified; F90.9 Attention-deficit hyperactivity disorder, unspecified type; Z81.1 Family history of alcohol abuse and dependence; S51.032S Puncture wound without foreign body of left elbow, sequela; S51.031S Puncture wound without foreign body of right elbow, sequela; X78.8XXS Intentional self-harm by other sharp object, sequela; F15.23 Other stimulant dependence with withdrawal; F32.9 Major depressive disorder, single episode, unspecified; Z59.1 Inadequate housing; E07.81 Sick-euthyroid syndrome; F13.10 Sedative, hypnotic or anxiolytic abuse, uncomplicated; R21 Rash and other nonspecific skin eruption; Z20.89 Contact with and (suspected) exposure to other communicable diseases
CPT/HCPCS: 36415; 80307; 80345; 80361; 83735; 84100; 84443; 84703; 85025; 86592; 86705; 86803; 87340; 87806; A4663; G0480; J1885; Q0163

== ENCOUNTER 2017-08-24 21:49 | Inpatient (IN) | payer OTHER ==
[~2017-08-24] VITALS: Ht 157.5 cm; Wt 73.5 kg
[~2017-08-24 21:49] MED LIST: CEPH500C2 PO; CLON0.1T14 PO; DICY20TA28 PO; DIPH50CA37 PO; GABA-534 PO; HYDR-3895 PO; IBUP-1953 PO; IBUP-1955 PO; LACT1CAP57 PO; METH-406 PO; PROP20TA19 PO; SULF1TAB48 PO; VENL150C2 PO
--- NOTE | 2017-08-25 01:30 | NUR ---
Intake Assessment Px is oriented to person, place and situation but confused about the date and time. Px is jittery, can't sit still, and lethargic. Px appears disheveled and anxious. Px can't give a decent hx during interview secondary to her condition. VS are as follows BP= 113/68, TX= 93, RR= 16, T= 96.8, O2sat= 96% on RA. Px is here for opiate, benzo and methamphetamine. No seizure hx as reported and NKA. Px brought home medicines for reconciliation. Admission process will continue in the unit.
[2017-08-25] MEDS ORDERED: ONDANSETRON 4 MG/2 ML VIAL IM PRN (02:00)
[2017-08-25] MEDS ORDERED: IBUPROFEN 600 MG TABLET PO PRN (02:00)
[2017-08-25] MEDS ORDERED: ONDANSETRON ODT 4 MG TAB.RAPDIS SL PRN (02:00)
[2017-08-25] MEDS ORDERED: LORAZEPAM 1 MG TABLET PO PRN ×3 (02:00→12:00)
[2017-08-25] MEDS ORDERED: MAGNESIUM HYDROXIDE 30 ML LIQUID UDC PO PRN (02:00)
[2017-08-25] MEDS ORDERED: MIRALAX 17 GM POWD.PACK PO PRN (02:00)
[2017-08-25] MEDS ORDERED: DICYCLOMINE HCL 20 MG TABLET PO PRN (02:00)
[2017-08-25] MEDS ORDERED: MAG HYDROX/AL HYDROX/SIMETH 30 ML LIQUID UDC PO PRN (02:00)
[2017-08-25] MEDS ORDERED: LOPERAMIDE HCL 2 MG CAPSULE PO PRN ×2 (02:00)
[2017-08-25] MEDS ORDERED: LORAZEPAM 2 MG/1 ML VIAL IM PRN (02:00)
[2017-08-25] MEDS ORDERED: diphenhydrAMINE 50 MG CAPSULE PO PRN (02:00)
[2017-08-25 02:24] LABS: BASOPHILS % (AUTO) 0.5 % (0.0-2.0); EOSINOPHILS # (AUTO) 0.3 K/uL (0.0-0.7); EOSINOPHILS % (AUTO) 3.5 % (0.0-7.0); HEMATOCRIT 37.6 % (31.2-41.9); HEMOGLOBIN 12.9 g/dL (10.9-14.3); LYMPHOCYTES # (AUTO) 2.1 K/uL (20.0-40.0); LYMPHOCYTES % (AUTO) 26.9 % (20.5-51.5); MEAN CORPUSCULAR HEMOGLOBIN 29.4 uug (24.7-32.8); MEAN CORPUSCULAR HGB CONC 34 g/dL (32.3-35.6); MONOCYTES # (AUTO) 0.6 K/uL (2.0-10.0); MONOCYTES % (AUTO) 7.9 % (0.0-11.0); NEUTROPHILS # (AUTO) 4.8 K/uL (1.8-8.9); NEUTROPHILS % (AUTO) 61.2 % (38.5-71.5); PLATELET COUNT (AUTO) 427 K/uL (179-408); RED BLOOD CELL COUNT(AUTO) 4.38 MIL/uL (3.63-4.92); WHITE BLOOD COUNT (AUTO) 7.9 K/uL (3.8-11.8)
[2017-08-25 02:30] VITALS: BP 118/64
--- NOTE | 2017-08-25 02:30 | NUR ---
Admission Note Px is 31 y/o female who is being admitted for medically supervised withdrawal from opiate, benzo and methamphetamine. Px is intoxicated. Px appears depressed and disheveled. Px is lethargic, drowsy, jittery, can't sit still, with slurred and soft speech. Some words of the px are incomprehensible. Px has poor eye contact. Px denies any hx of seizures and has NKA. Px states current substance use as follows: 1. Heroin- 2-3 G IV daily for 1 week, last use 08/24/2017 2. Xanax- 1 mg PO daily for 1 week, last intake 08/24/2017 3. Methamphetamine- $20 smoked daily, last use 08/24/2017 Px states that she seeks tx today just to get well. Px had been in several tx before where the last one was in sober living after the tx here in [facility]. MRSA done to follow up results. Px was sober for less than a year from September 2016 until last week. Px stated "I got hooked last week because my friends from another unit asked me to join them and use heroin." VS are as follows BP= 118/64, AR= 83, RR= 14, O2sat= 98% with O2 inhalation at 2 LPM via NC. Respirations are irregular. Dry cough noted. Wheezes noted in right upper lung field on auscultation. Bowel sounds are active on all quadrants. Px has swelling on left distal forearm and appears pinkish. Photo taken and put to chart. Px follows regular diet at home. NKA. Pxs ht is 52 and weighs 162 lbs on standing scale. Px is placed on 1 to 1 for unsteady gait and safety. Px was educated about the plan of care including detox, group therapy, individual therapy and D/C planning. Px was encouraged to be open and honest for a successful recovery.
[2017-08-25 02:39] LABS: ALANINE AMINOTRANSFERASE 48 U/L (14-59); ALKALINE PHOSPHATASE 111 U/L (50-136); AMYLASE 26 U/L (25-115); ASPARTATE AMINOTRANSFERASE 32 U/L (15-37); BILIRUBIN,TOTAL 0.3 mg/dL (0.2-1.0); CARBON DIOXIDE 25 mmol/L (21-32); CHLORIDE 104 mmol/L (98-107); CREATININE 0.8 mg/dL (0.6-1.3); GLUCOSE 137 mg/dL (74-106); LIPASE 63 U/L (73-393); POTASSIUM 3.4 mmol/L (3.5-5.1); TOTAL PROTEIN, SERUM 7.8 g/dL (6.4-8.2); UREA NITROGEN, BLOOD 13 mg/dL (7-18)
[2017-08-25 02:50] LABS: THYROID STIMULATING HORMONE 0.725 mIU/mL (0.358-3.740)
[2017-08-25] MEDS ORDERED: AMPH15TA2 PO (03:20)
[2017-08-25 04:00] VITALS: BP 112/66
[2017-08-25 04:09] LABS: ETHANOL < 3 MG/DL (0-0)
--- NOTE | 2017-08-25 07:15 | NUR ---
End of Shift Note During the shift, px was put on O2 inhalation at 2 LPM via NC due to low O2 saturation of the px. No ordered taper yet. No PRN medications given. Px is on 1 to 1 for unsteady gait and safety. Px's oral intake is 250 ml, No urine and No BM. Last COWS 7 and CIWA 11. Bed on lowest position, side rails up 2x padded and call light within reach. We'll continue to monitor. Px endorsed to AM shift nurse.
--- NOTE | 2017-08-25 07:45 | NUR ---
START OF SHIFT Rcvd endorse form ongoing nurse, client is in room, she is sitting in bed, unable to open eyes, she appears disheveled, unwashed clothes, oily hair, dirty soles, scattered dry scabs on face, client stated, "I pick at my skin sometimes." Encourage client to avoid touching scabs. Cllient is a/o x 4, she presents with flat affect, irritable. Client repotrs generalized body aches, agitation, and fatigue. Client has not provide urine for drug scree. Client is on 1:1 for safety, d/t unsteady gait. Encourage client to increase PO fluid as tolerated to facilitate detox. Encourage client to attend group therapy to learn skills to maintain sober. Last CIWA 10 @ 0400. Client is admitted for alprazolam and heroin withdrawal. Seixzure precautions rendered. Call light within reach.
[2017-08-25 08:08] VITALS: BP 120/90
[2017-08-25] MEDS ORDERED: POTASSIUM CHLORIDE 20 MEQ TAB.PRT.SR PO ONE (09:00)
[2017-08-25 09:47] LABS: *AMPHETAMINE, URINE POSITIVE (NEGATIVE); *BARBITURATE, URINE NEGATIVE (NEGATIVE); *CANNABINOID, URINE NEGATIVE (NEGATIVE); *COCCAINE, URINE NEGATIVE (NEGATIVE); *OPIATE, URINE POSITIVE (NEGATIVE); *PHENCYCLIDINE SCREEN,URINE NEGATIVE (NEGATIVE)
[2017-08-25 09:50] LABS: *URINE HCG, QUAL NEGATIVE (NEGATIVE)
[2017-08-25] MEDS ORDERED: ONDA4TAB5 PO (10:43)
[2017-08-25] MEDS ORDERED: KETOROLAC TROMETHAMINE 30 MG INJ IM ONE (10:45)
[2017-08-25] MEDS ORDERED: CLONIDINE HCL 0.1 MG TABLET PO ONE (10:45)
[2017-08-25] MEDS ORDERED: BUPRENORPHINE HCL 2 MG TAB.SUBL SL ONE (10:45)
[2017-08-25] MEDS ORDERED: LORAZEPAM 1 MG TABLET PO ONE (10:45)
[2017-08-25] MEDS ORDERED: PRAZOSIN HCL 1 MG CAPSULE PO PRN (12:00)
[2017-08-25 12:56] VITALS: BP 130/87
[2017-08-25] MEDS ORDERED: PROPRANOLOL HCL 20 MG TABLET PO ONE (15:00)
[2017-08-25] MEDS: GABAPENTIN 300 MG CAPSULE PO SCH ×2 (15:58→20:52)
[2017-08-25] MEDS: CEPHALEXIN MONOHYDRATE 500 MG CAPSULE PO SCH ×2 (15:59→20:52)
[2017-08-25 16:42] VITALS: BP 136/88
[2017-08-25] MEDS: LORAZEPAM 1 MG TABLET PO PRN (17:04)
--- NOTE | 2017-08-25 17:04 | NUR ---
PRN Ativan 1mg PO administered for CIWA 9, Client presents with anxious, irritable mood, increased P 99. Call light within reach
--- NOTE | 2017-08-25 18:04 | NUR ---
Reassess PRN Ativan 1mg PO, client is in room, sound asleep, RR 16, spO2 @ 96% on 2lpm O2 via NC.
--- NOTE | 2017-08-25 19:00 | NUR ---
END OF SHIFT Endorse client to incoming nurse, client is in room, she is a/o x 4, she continues to present with anxious mood, flat affect. Last COWS 9, CIWA 9 @ 1700. Call light within reach.
[2017-08-25 20:00] VITALS: BP 101/69
--- NOTE | 2017-08-25 20:00 | NUR ---
Start of Shift Patient lying on bed, with 1:1 for unsteady gait. Pt needs assistance with ambulation. appears disheveled, smelly and unkempt. Patient noted to have flushed and moist skin and is sensitive to light, becomes easily agitated when light was turned on. Patient with flat affect, labile and at times stares at the ceiling. Pt can be re-oriented but needs further reinforcement of instructions and teachings. Room appears dirty, with candy wrappers on the floor. Fall, universal, safety and seizure precautions in place. Call light within reach. Latest COWS-10, CIWA-12. Will continue to monitor.
[2017-08-25] MEDS: PROPRANOLOL HCL 20 MG TABLET PO SCH (20:52)
[2017-08-25] MEDS: SULFAMETH/TRIMETH 800/160 MG TABLET PO SCH (20:52)
[2017-08-25] MEDS: LACTOBACILLUS RHAMNOSUS GG 1 EACH CAPSULE PO SCH (20:54)
[2017-08-26] VITALS: BP 112/73
[2017-08-26 04:00] VITALS: BP 119/75
--- NOTE | 2017-08-26 07:05 | NUR ---
End of Shift Patient asleep on bed, but arousable, AAOx3, noted to be anxious and c/o generalized pain=2/10. Patient verbalized that she wanted to get more sleep at this time. Patient continues to be on 1:1 for unsteady gait, at risk for fall due when ambulating unassisted. Patient appears depressed, labile and melancholic. Patient continue to appear to be disheveled, unkempt and odorous. Fall, universal, safety and seizure precautions in place. Call light within reach. Latest COWS=9, CIWA=9, slept for 8 hours. Endorsed to AM shift nurse for continuity of care.
--- NOTE | 2017-08-26 07:25 | NUR ---
START OF SHIFT PT IS A 31 F ADMITTED ON 08/25/17 FOR MEDICALLY SUPERVISED BENZO AND OPIATE WITHDRAWAL. PT IS ON PRN ATIVAN AND SUBUTEX. PT IS A/O X4, RESPIRATION EVEN AND UNLABORED. PT APPEARS DROWSY, HAS A FLAT AFFECT, DEPRESSED, HAS A DISHEVELED APPEARANCE, AND ODOROUS. RESPIRATIONS EVEN AND UNLABORED. PT PRESENTS ANXIETY, AGITATION, IRRITABILITY, GENERALIZED PAIN, DIAPHORESIS, RESTLESSNESS, HOT/COLD FLASHES, LEFT TEETH PAIN, EMOTIONALLY VOLATILITY, DIFFICULTY THINKING, DIFFICULTY CONCENTRATING, DYSPHORIA, ANHEDONIA. PT CONTINUES ON A 1:1 FOR UNSTEADY GAIT. ENCOURAGED PT TO UPKEEP PERSONAL HYGIENE. SIDE RAILS UPX2, BED IN LOW POSITION, CALL LIGHT WITHIN REACH. SAFETY MEASURES IN PLACE. WILL CLOSELY MONITOR AND PROVIDE SUPPORT.
[2017-08-26 08:00] VITALS: BP 120/79
[2017-08-26] MEDS: PROPRANOLOL HCL 20 MG TABLET PO SCH ×2 (08:54→21:00)
[2017-08-26] MEDS: SULFAMETH/TRIMETH 800/160 MG TABLET PO SCH ×2 (08:54→21:00)
[2017-08-26] MEDS: LACTOBACILLUS RHAMNOSUS GG 1 EACH CAPSULE PO SCH ×2 (08:54→21:00)
[2017-08-26] MEDS: VENLAFAXINE XR 150 MG CAP.SR.24H PO SCH (08:55)
[2017-08-26] MEDS: METHOCARBAMOL 750 MG TABLET PO PRN (08:55)
[2017-08-26] MEDS: GABAPENTIN 300 MG CAPSULE PO SCH ×2 (08:55→14:06)
[2017-08-26] MEDS: CEPHALEXIN MONOHYDRATE 500 MG CAPSULE PO SCH ×3 (08:55→21:00)
[2017-08-26] MEDS ORDERED: VENLAFAXINE XR 150 MG CAP.SR.24H PO SCH (09:00)
[2017-08-26] MEDS ORDERED: TUBERCULIN,PURIF.PROT.DERIV. 5 TU/0.1 ML TEST ID ONE (09:00)
[2017-08-26] MEDS: BUPRENORPHINE HCL 2 MG TAB.SUBL SL PRN (09:03)
[2017-08-26] MEDS: KETOROLAC TROMETHAMINE 30 MG INJ IM PRN ×2 (09:03→16:11)
--- NOTE | 2017-08-26 09:03 | NUR ---
PRN SUBUTEX 4 MG PO PRN AND TORADOL 30 MG IM GIVEN FOR COWS 12, PT PRESENTS DIAPHORESIS, HOT/COLD FLASHES, CLAMMY SKIN, CHILLS, ANXIETY, AGITATION, TEETH AND GENERALIZED BODY ACHES 12/01. WILL MONITOR AND REASSESS. EMAR WAS NOT SAVED BEFORE SUBUTEX WAS DISCONTINUED; MED RESCANNED AND CHECKED WITH AND VERIFIED BY [facility] PHARMACIST. Addendum: 08/26/17 at 1628 by ROGELIO MOLINA RN ROBAXIN 750 MG PO PRN CORRECT TIME MEDS GIVEN 0855
--- NOTE | 2017-08-26 10:03 | NUR ---
REASSESSMENT PT IS IN BED WITH EYES CLOSED, APPEARS TO BE SLEEPING. RESPIRATIONS EVEN AND UNLABORED. RESPIRATION EVEN AND UNLABORED. SAFETY MEASURES IN PLACE. WILL CONTINUE TO MONITOR.
[2017-08-26 10:15] LABS: HEPATITIS B SURFACE AG Negative (Negative)
[2017-08-26] MEDS ORDERED: METH-406 PO (11:40)
[2017-08-26] MEDS ORDERED: CEPH500C2 PO (11:40)
[2017-08-26] MEDS ORDERED: DIPH50CA37 PO (11:40)
[2017-08-26] MEDS ORDERED: DICY20TA28 PO (11:40)
[2017-08-26] MEDS ORDERED: SULF1TAB3 PO (11:40)
[2017-08-26] MEDS ORDERED: GABA-534 PO ×2 (11:40)
[2017-08-26] MEDS ORDERED: LACT1CAP57 PO (11:40)
[2017-08-26] MEDS ORDERED: HYDR-3895 PO (11:40)
[2017-08-26] MEDS ORDERED: PROP20TA19 PO (11:40)
[2017-08-26] MEDS ORDERED: IBUP-1955 PO (11:40)
[2017-08-26 12:00] VITALS: BP 119/80
[2017-08-26] MEDS: CLONIDINE HCL 0.1 MG TABLET PO PRN (14:08)
[2017-08-26] MEDS ORDERED: BACLOFEN 10 MG TABLET PO ONE (15:00)
[2017-08-26 16:00] VITALS: BP 139/86
--- NOTE | 2017-08-26 16:11 | NUR ---
PRN ATIVAN 2 MG PO PRN, TORADOL 30 MG IM, BENTYL 20 MG PO PRN GIVEN. PT C/O STOMACH CRAMPS, GENERALIZED BODY ACHES AND TEETH PAIN 12/01, AND CIWA 13. SAFETY MEASURES IN PLACE. WILL MONITOR AND REASSESS.
[2017-08-26] MEDS ORDERED: BUPRENORPHINE HCL 2 MG TAB.SUBL SL ONE (17:00)
[2017-08-26] MEDS ORDERED: CLONIDINE HCL 0.1 MG TABLET PO ONE (17:00)
--- NOTE | 2017-08-26 17:11 | NUR ---
REASSESSMENT PT IS IN ROOM SITTING FOLDING CLOTHES, APPEARS MUCH CALMER, VERBALIZED HER ANXIETY DECREASED FROM 8 TO 6 AND STOMACH CRAMPS ARE DECREASED. AARON 10. WILL CLOSELY MONITOR.
--- NOTE | 2017-08-26 18:53 | NUR ---
END OF SHIFT LAST COWS 10 AND CIWA 10 @1600. PT HAS BEEN GIVEN ROBAXIN, TORADOL X2, BENTYL, CLONIDINE, ATIVAN 2 MG, SUBUTEX 4 MG PO PRNS DURING SHIFT. PT CONTINUES ON A 1:1 FOR UNSTEADY GAIT. PT HAS BEEN ISOLATIVE IN ROOM; SHOWERED TODAY, AND ORGANIZED THE ROOM AND CLOTHES. ORDERED SCHEDULED SUBUTEX FOR 08/26 1700, 2100 AND 08/27 0900. FLUID INTAKE 100ML, VOIDED X3, BM X2. SAFETY MEASURES IN PLACE. WILL GIVE ENDORSEMENT TO SALES ATTENDANT.
[2017-08-26 20:00] VITALS: BP 124/101
--- NOTE | 2017-08-26 20:00 | NUR ---
START OF SHIFT NOTE RECEIVED REPORT FROM DAY SHIFT NURSE. PATIENT IS A 31 YEAR OLD FEMALE ADMITTED FOR OPIATE/BENZO WITHDRAWAL. PATIENT IS ON 1:1 FOR UNSTEADY GAIT. PATIENT WAS GIVEN PRN CLONIDINE , ROBAXIN, ATIVAN, SUBUTEX AND BENTYL . LAST COWS 10 AND CIWA 10. RECEIVED PATIENT IN THE ROOM. PATIENT ODOROUS AND DISHEVELED. PATIENT'S LINENS DIRTY, BUT REFUSES CHANGE. PATIENT APPEARS TO BE SOMNOLENT BUT VERBALIZES SHE'S ANXIOUS, RESTLESS, NOTED YAWNING, IRRITABLE AND ANGRY. SAFETY MEASURES IN PLACE. CALL LIGHT IN REACH. WILL CONTINUE TO MONITOR.
[2017-08-26] MEDS ORDERED: GABAPENTIN 300 MG CAPSULE PO SCH (21:00)
[2017-08-26] MEDS ORDERED: BUPRENORPHINE HCL 2 MG TAB.SUBL SL SCH (21:00)
[2017-08-26] MEDS ORDERED: LORAZEPAM 1 MG TABLET PO ONE (21:00)
[2017-08-26] MEDS: BACLOFEN 10 MG TABLET PO SCH (21:00)
--- NOTE | 2017-08-26 21:00 | NUR ---
ATIVAN HELD PATIENT NOTED BEING SEDATED, ATIVAN HELD. RESPIRATION EVEN AND UNLABORED. WILL CONTINUE TO MONITOR
[2017-08-27] VITALS: BP_SYST 124; BP_SYST 127; BP_DIAS 52; BP_DIAS 62
--- NOTE | 2017-08-27 | NUR ---
COWS/CIWA DEFERRED PATIENT IN BED WITH EYES CLOSED. RESPIRATION EVEN AND UNLABORED. SAFETY MEASURES IN PLACE. CALL LIGHT IN REACH. WILL CONTINUE TO MONITOR
[2017-08-27 04:00] VITALS: BP 124/52
--- NOTE | 2017-08-27 04:00 | NUR ---
COWS/CIWA DEFERRED PATIENT IN BED WITH EYES CLOSED. RESPIRATION EVEN AND UNLABORED. SAFETY MEASURES IN PLACE. CALL LIGHT IN REACH. WILL CONTINUE TO MONITOR
--- NOTE | 2017-08-27 07:05 | NUR ---
END OF SHIFT NOTE PATIENT SLEPT 9 HOURS. FLUID INTAKE OF 250 ML. VOIDED X 0. NO BM. PATIENT IS ON 1:1 FOR UNSTEADY GAIT. MONITORED PATIENT THROUGHOUT SHIFT. PATIENT ODOROUS AND DISHEVELED. PATIENT'S LINENS DIRTY, BUT REFUSES CHANGE, PATIENT APPEARS TO BE SOMNOLENT BUT VERBALIZES SHE'S ANXIOUS, RESTLESS, YAWNING, IRRITABLE AND ANGRY BEGINNING OF SHIFT . ATIVAN WAS HELD DUE TO PATIENT SEDATED. PATIENT ON O2 INHALATION VIA N/C DUE TO LOW O2 . 89% SpO2 IN RA. 97-99% WITH O2 VIA NC AT THIS TIME. NO SOB, NOTED WHEEZING . HOB ELEVATED. RESPIRATION EVEN AND UNLABORED. ENDORSED TO NEXT SHIFT. PATIENT DID NOT REQUIRE PRN MEDICATION. SAFETY MEASURES IN PLACE. CALL LIGHT IN REACH. WILL CONTINUE TO MONITOR. LAST COWS 9 AND CIWA 8.
--- NOTE | 2017-08-27 07:15 | NUR ---
START OF SHIFT : PATIENT IS A 31 YR OLD FEMALE ADMITTED TOP [facility] ON 08/25/17 FOR A MEDICALLY SUPERVISED WITHDRAWAL FORM HEROIN, XANAX AND METHAMPHETAMINES. PATIENT IS ASLEEP IN BED , O2 2L/M VIA NC FOR DECREASED OXYGEN SATS. PATIENT DID NOT REQUEST OR REQUIRE ANY PRN MEDS ON BACK ROLLER, SHE SLEPT FOR 9+ HOURS AND LAST COWS 9 CIWA 8 @ 2000. BED IS IN LOW LOCKED POSITION WITH SIDE RAILS UPX2 AND SITTER AT BEDSIDE FOR SAFETY DUE TO UNSTEADY GAIT. WILL CONTINUE TO MONITOR AND ASSIST.
[2017-08-27 08:00] VITALS: BP 117/85
[2017-08-27] MEDS: LACTOBACILLUS RHAMNOSUS GG 1 EACH CAPSULE PO SCH ×2 (08:06→20:50)
[2017-08-27] MEDS: BACLOFEN 10 MG TABLET PO SCH ×2 (08:06→20:52)
[2017-08-27] MEDS: CEPHALEXIN MONOHYDRATE 500 MG CAPSULE PO SCH ×3 (08:06→20:50)
[2017-08-27] MEDS: LORAZEPAM 1 MG TABLET PO PRN (08:06)
[2017-08-27] MEDS: VENLAFAXINE XR 150 MG CAP.SR.24H PO SCH (08:06)
[2017-08-27] MEDS: GABAPENTIN 300 MG CAPSULE PO SCH ×3 (08:06→20:50)
[2017-08-27] MEDS: SULFAMETH/TRIMETH 800/160 MG TABLET PO SCH ×2 (08:06→20:50)
[2017-08-27] MEDS: PROPRANOLOL HCL 20 MG TABLET PO SCH ×2 (08:07→20:51)
--- NOTE | 2017-08-27 08:07 | NUR ---
PRN ATIVAN ATIVAN 1MG PO GIVEN FOR CIWA 11 PATIENT IS HAVING MODERATE HALLUCINATIONS, KEEPS REACHING FOR THINGS IN THE AIR, TRIES TO DRINK FROM AN INVISIBLE CUP. 1:1 SITTER AT BEDSIDE FOR SAFETY, BED SIDE RAILS UP X 2.
[2017-08-27] MEDS ORDERED: BUPRENORPHINE HCL 2 MG TAB.SUBL SL SCH (09:00)
--- NOTE | 2017-08-27 09:07 | NUR ---
PRN REASSESS CIWA NOW 9, PATIENT IS MORE ALERT AND COHERENT, WILL CONTINUE TO ASSESS
[2017-08-27] MEDS ORDERED: MIRALAX 17 GM POWD.PACK PO ONE (11:45)
[2017-08-27] MEDS ORDERED: ALBUTEROL SULFATE 2.5 MG/3 ML NEBU NEB PRN (11:45)
--- NOTE | 2017-08-27 11:45 | NUR ---
CHEST X RAY PERFORMED
[2017-08-27] MEDS: DOCUSATE SODIUM 250 MG CAPSULE PO SCH (11:54)
--- NOTE | 2017-08-27 11:55 | NUR ---
BREATHING TX PERFORMED BY RT
[2017-08-27 12:00] VITALS: BP 124/74
[2017-08-27] MEDS: ACETAMINOPHEN 325 MG TABLET PO PRN (13:58)
--- NOTE | 2017-08-27 14:00 | NUR ---
PRN TYLENOL/MOTRIN MOTRIN 600MG PO AND TYLENOL 650MG PO GIVEN FOR C/O TOOTHACHE 10/01 WILL REASSESS
--- NOTE | 2017-08-27 15:00 | NUR ---
MOTRIN/TYLENOL REASSESS PT STATES TOOTH PAIN IS NOW 4/10, MEDICATION EFFECTIVE.
[2017-08-27 16:00] VITALS: BP 125/83
[2017-08-27] MEDS: CLONIDINE HCL 0.1 MG TABLET PO PRN (17:48)
[2017-08-27] MEDS: HYDROXYZINE PAMOATE 25 MG CAPSULE PO PRN (17:48)
--- NOTE | 2017-08-27 17:52 | NUR ---
PRN VISTARIL/ CLONIDINE VISTARIL 25MG PO AND CLONIDINE 0.1MG PO GIVEN FOR INCREASED AGITATION, WILL CONTINUE TO MONITOR
--- NOTE | 2017-08-27 18:52 | NUR ---
PRN REASSESS PATIENT IS LESS AGITATED , MEDICATIONS EFFECTIVE, CONTINUE TO MONITOR
--- NOTE | 2017-08-27 19:10 | NUR ---
END OF SHIFT : PATIENT IS A 31 YR OLD FEMALE ADMITTED TO [facility] ON 08/25/17 FOR A MEDICALLY SUPERVISED WITHDRAWAL FROM HEROIN AND XANAX. PATIENT IS ON A MODIFIED SUBUTEX TAPER STARTING TODAY 08/27/17 AND ENDING 08/28/17. PATIENT HAS BEEN LETHARGIC DURING DAY SHIFT PRESENTING WITH LABILE MOODS, DECREASED APPETITE, UNKEMPT APPEARANCE, DISHEVELED AND AGITATED. SHE HAS AN UNSTEADY GAIT SO IS ON 1:1 FOR SAFETY. PATIENT IS WHEEZING AND HAS LOW OXYGEN SATURATIONS, ORDERS FOR 2L O2 VIA NC PRN. CHEST X RAY PERFORMED TODAY WHICH WAS NORMAL, RT PERFORMED BREATHING TREATMENT. MD ORDERS TO RESTRICT PATIENT FROM SMOKING DUE TO RESPIRATORY DISTRESS. PATIENT CONTINUES ON PO KEFLEX AND BACTRIM FOR SWELLING/CELLULITIS ON LEFT WRIST DUE TO IV DRUG USE. PATIENT STARTED THE SHIFT VERY DROWSY , MUMBLING, REACHING OUT FOR IMAGINARY OBJECTS FROM THE AIR AND BEING VERY UNSTEADY AND CONFUSED , NOW SHE IS MORE ALERT AND ABLE TO COMMUNICATE EASILY. PATIENT HAD A FLUID INTAKE THIS SHIFT OF 900 ML,2 VOIDS AND 0 BM. PRN MEDICATIONS GIVEN : ATIVAN 1MG PO, MOTRIN 600MG PO AND TYLENOL 650MG PO, VISTARIL 25MG PO AND CLONIDINE 0.1MG PO. COWS 9 AND CIWA 12 @ 1600. CONTINUE TO FOLLOW MD PLAN OF CARE.
--- NOTE | 2017-08-27 19:30 | NUR ---
START OF SHIFT Pt is a 31 y/o female admitted on 08/25/17 for benzo, opiate and meth withdrawal. Pt is on a modified Subutex taper. Pt was anticipated to be d/c tomorrow, but had a one day extension. Pt is on a 1:1 for unsteady gait/safety. Pt had a chest x-ray today for wheezing/dyspnea, results were negative. Pt has PRN 02 available via nasal cannula. Pt is on Bactrim and Culturelle for bilateral cellulitis near wrists. Pt uses wheelchair as needed. Pt received PRN Ativan, Motrin, Tylenol, Vistaril and Clonidine and last COWS 9 and CIWA 12 during day shift. Upon assessment pt presents with anxiety, agitation, irritability, body aches, left-sided toothache, sweats, chills, lethargy, difficulty concentrating, restlessness, stuffy nose, disheveled appearance, flat affect, unkempt room, dysphoria and anhedonia. Denies SOB and no wheezing present at this time. Medications due. Safety measures in place. 1:1 sitter at bedside. Will continue to monitor.
[2017-08-27 20:00] VITALS: BP 132/90
[2017-08-27] MEDS: METHOCARBAMOL 750 MG TABLET PO PRN (20:50)
--- NOTE | 2017-08-27 20:50 | NUR ---
PRN ROBAXIN AND TORADOL INJ ADMINISTRATION Pt reports body aches and tooth pain 12/01. Pt appears irritable and uncomfortable. Safety measures in place. Call light within reach. Will continue to monitor.
[2017-08-27] MEDS: BUPRENORPHINE HCL 2 MG TAB.SUBL SL SCH (20:51)
[2017-08-27] MEDS: KETOROLAC TROMETHAMINE 30 MG INJ IM PRN (20:52)
--- NOTE | 2017-08-27 21:20 | NUR ---
PRN TORADOL INJ REASSESSMENT Pt reports improvement in tooth pain to tolerable level. Safety measures in place. Call light within reach. Will continue to monitor.
--- NOTE | 2017-08-27 21:50 | NUR ---
EARNEST WILSON REASSESSMENT Pt reports body aches improved to tolerable level. Safety measures in place. Call light within reach. Will continue to monitor.
--- NOTE | 2017-08-28 | NUR ---
COWS/CIWA DEFERRED AND VITALS REFUSED Pt laying in bed with eyes closed, COWS/CIWA deferred, to be assessed when pt is awake per orders. Vitals refused. Respirations even and unlabored. Safety measures in place. Call light within reach. Will continue to monitor.
--- NOTE | 2017-08-28 01:22 | NUR ---
PRN TORADOL IM AND CATAPRES ADMINISTRATION PATIENT C/O ANXIETY , SWEATING AND TOOTHACHE. WILL MONITOR FOR EFFECTIVENESS
--- NOTE | 2017-08-28 07:20 | NUR ---
START OF SHIFT : PATIENT IS A 31 YR OLD FEMALE ADMITTED TO [facility] ON 08/25/17 FOR A MEDICALLY SUPERVISED WITHDRAWAL FROM HEROIN, XANAX AND METH. SHE IS ON A MODIFIED SUBUTEX TAPER AND THIS IS HER LAST DAY. PATIENT IS ASLEEP IN BED AT THIS TIME, BREATHING EVEN AND UNLABORED, SITTER AT BEDSIDE FOR SAFETY DUE TO UNSTEADY GAIT.PRN MEDS GIVEN ON PM SHIFT : ROBAXIN AND TORADOL. PATIENT SLEPT FOR 6+ HOURS, LAST COWS 8 AND CIWA 9 @ 0300. CONTINUE TO FOLLOW MD PLAN OF CARE.
--- NOTE | 2017-08-28 07:22 | NUR ---
END OF SHIFT Pt is a 31 y/o female admitted on 08/25/17 for benzo, opiate and meth withdrawal. Pt is on a modified Subutex taper, tolerating well. Pt is on a 1:1 for unsteady gait/safety. Pt has PRN 02 available via nasal cannula, applied 02 therapy while pt was sleeping d/t SP02 <95% on RA. Pt is on Bactrim and Culturelle for bilateral cellulitis near wrists. Pt presented with anxiety, agitation, irritability, body aches, left-sided toothache, sweats, chills, lethargy, difficulty concentrating, restlessness, stuffy nose, disheveled appearance, flat affect, unkempt room, dysphoria and anhedonia. Pt complained of urinary urgency with dribbling and complains of pelvic discomfort. Scheduled medications and PRN Robaxin and Toradol inj administered, effective in S/S of withdrawal AEB CIWA 10 and COWS 12 lowered to CIWA 9 and COWS 8. Pt slept 6 hours. Intake 750 ml, void x 1, stool x 0. Safety measures in place. Call light within reach. Pts needs have been met. Endorsed to day shift nurse.
[2017-08-28 08:00] VITALS: BP 115/78
[2017-08-28] MEDS: GABAPENTIN 300 MG CAPSULE PO SCH ×3 (08:36→20:49)
[2017-08-28] MEDS: VENLAFAXINE XR 150 MG CAP.SR.24H PO SCH (08:36)
[2017-08-28] MEDS: LACTOBACILLUS RHAMNOSUS GG 1 EACH CAPSULE PO SCH ×2 (08:36→20:48)
[2017-08-28] MEDS: DOCUSATE SODIUM 250 MG CAPSULE PO SCH (08:36)
[2017-08-28] MEDS: SULFAMETH/TRIMETH 800/160 MG TABLET PO SCH ×2 (08:36→20:48)
[2017-08-28] MEDS: CEPHALEXIN MONOHYDRATE 500 MG CAPSULE PO SCH ×3 (08:36→20:48)
[2017-08-28] MEDS: BACLOFEN 10 MG TABLET PO SCH ×2 (08:36→20:48)
[2017-08-28] MEDS: PROPRANOLOL HCL 20 MG TABLET PO SCH ×2 (08:37→20:48)
[2017-08-28] MEDS: BUPRENORPHINE HCL 2 MG TAB.SUBL SL SCH (08:37)
--- NOTE | 2017-08-28 09:15 | NUR ---
PRN TORADOL TORADOL 30MG IM GIVEN IN LEFT GLUTEUS FOR TOOTH PAIN 12/01 WILL REASSESS
[2017-08-28] MEDS: KETOROLAC TROMETHAMINE 30 MG INJ IM PRN ×2 (09:16→16:41)
--- NOTE | 2017-08-28 10:15 | NUR ---
PRN TORADOL REASSESS PT STATES TORADOL HELPED ALLEVIATE HER TOOTH PAIN, PAIN IS NOW 3/10. WILL CONTINUE TO MONITOR
--- NOTE | 2017-08-28 11:00 | NUR ---
PPD READ ZERO INDURATION NOTED
[2017-08-28 12:00] VITALS: BP 154/100
[2017-08-28] MEDS: METHOCARBAMOL 750 MG TABLET PO PRN ×2 (12:39→20:58)
[2017-08-28] MEDS: CLONIDINE HCL 0.1 MG TABLET PO PRN (12:39)
[2017-08-28] MEDS: HYDROXYZINE PAMOATE 25 MG CAPSULE PO PRN (12:39)
--- NOTE | 2017-08-28 12:40 | NUR ---
PRN MEDICATIONS CLONIDINE 0.1MG PO GIVEN FOR INCREASED BP 154/100 HR 97 VISTARIL 25MG PO GIVEN FOR AGITATION ROBAXIN 750MG PO GIVEN FOR C/O MUSCLE ACHES 10/01 WILL REASSESS
--- NOTE | 2017-08-28 13:40 | NUR ---
PRN REASSESS CLONIDINE 0.1MG PO EFFECTIVE BP NOW 136/88 HR 89 VISTARIL EFFECTIVE, PATIENT IS LESS IRRITABLE ROBAXIN EFFECTIVE, MUSCLE ACHES/PAIN NOW 08/01 WILL CONTINUE TO MONITOR
--- NOTE | 2017-08-28 14:26 | NUR ---
Client was prompted to attend group counseling sessions at 11:00am and at 3:30pm.
--- NOTE | 2017-08-28 15:27 | NUR ---
PRN MIRALAX MIRALAX 17G PO GIVEN FOR C/O CONSTIPATION, WILL CONTINUE TO MONITOR
--- NOTE | 2017-08-28 16:40 | NUR ---
PRN TORADOL TORADOL 30MG IM GIVEN IN LEFT GLUTEUS FOR PAIN 12/01 RELATED TO BROKEN / ROTTED TOOTH AND JAW PAIN WILL REASSESS
[2017-08-28 17:00] VITALS: BP 121/68
--- NOTE | 2017-08-28 17:40 | NUR ---
PRN REASSESS TORADOL 30MG IM EFFECTIVE, PAIN LEVEL NOW 3/10
--- NOTE | 2017-08-28 18:57 | NUR ---
END OF SHIFT : PATIENT IS A 31 YR OLD FEMALE ADMITTED TO [facility] ON 08/25/17 FOR A MEDICALLY SUPERVISED WITHDRAWAL FROM HEROIN, XANAX AND METH. PATIENT HAS COMPLETED HER SUBUTEX TAPER AND IS TO BE DISCHARGED TOMORROW AM 08/29/17 TO [facility] . PATIENT HAS ATTENDED ALL GROUPS TODAY AND HAS BEEN MORE SOCIAL AND LESS ISOLATIVE. PRN MEDS GIVEN ON THIS SHIFT : TORADOL X2, ROBAXIN, VISTARIL, CLONIDINE AND MIRALAX. SHE COMPLAINS OF LEFT SIDE JAW PAIN DUE TO BROKEN/ROTTED TOOTH, SHE IS ON KEFLEX AND BACTRIM PO FOR CELLULITIS TO THE LEFT WRIST DUE TO IV DRUG USE. PATIENT HAS BEEN ALERT AND ORIENTED THIS SHIFT AND IS NO LONGER ON A 1:1. SHE HAD A FLUID INTAKE OF 1500ML, 2 VOIDS AND 0 BM. LAST COWS 5 AND CIWA 7 @ 1600. CONTINUE TO FOLLOW MD PLAN OF CARE. ENDORSED TO NIGHT NURSE.
[2017-08-28 20:00] VITALS: BP 96/70
--- NOTE | 2017-08-28 20:00 | NUR ---
START OF SHIFT NOTE RECEIVED REPORT FROM DAY SHIFT NURSE. PATIENT IS A 31 YEAR OLD FEMALE ADMITTED FOR OPIATE/BENZO WITHDRAWAL. PATIENT COMPLETED MODIFIED SUBUTEX TAPER. PATIENT IS MEDICALLY CLEARED TO BE DISCHARGE TOMORROW. PATIENT WAS C/O OF TOOTHACHE. PATIENT WAS GIVEN PRN TORADOL X 2, VISTARIL, CLONIDINE AND MIRALAX. LAST COWS 5 AND CIWA 7. RECEIVED PATIENT ALERT AND ORIENTED X 4. RESPIRATION EVEN AND UNLABORED. PATIENT WITH FLAT AFFECT MOOD , DISHEVELED, ANXIOUS , RESTLESS, IRRITABLE AND C/O TOOTHACHE 7/10. RELAXATION TECHNIQUE AND POSITIVE ENCOURAGEMENT GIVEN. SAFETY MEASURES IN PLACE. CALL LIGHT IN REACH.
--- NOTE | 2017-08-28 20:58 | NUR ---
PRN ROBAXIN ADMINISTRATION PATIENT C/O MUSCLE ACHES. WILL MONITOR FOR EFFECTIVENESS
--- NOTE | 2017-08-28 21:58 | NUR ---
PRN ROBAXIN RE-ASSESSMENT PATIENT STATES ROBAXIN HELPFUL. PAIN AT 2/10 AT THIS TIME, TOLERABLE. WILL CONTINUE TO MONITOR.
--- NOTE | 2017-08-29 | NUR ---
COWS AND CIWA DEFERRED PATIENT SLEEPING. RESPIRATION EVEN AND UNLABORED. SAFETY MEASURES IN PLACE. CALL LIGHT IN REACH. WILL CONTINUE TO MONITOR
[2017-08-29] MEDS: KETOROLAC TROMETHAMINE 30 MG INJ IM PRN (01:18)
--- NOTE | 2017-08-29 01:18 | NUR ---
PRN TORADOL IM ADMINISTRATION PATIENT C/O TOOTHACHE 01/01. WILL MONITOR FOR EFFECTIVENESS
[2017-08-29] MEDS: CLONIDINE HCL 0.1 MG TABLET PO PRN (01:22)
--- NOTE | 2017-08-29 01:22 | NUR ---
PRN CATAPRES ADMINISTRATION PATIENT STATES SHE ANXIOUS DUE TO HER TOOTHACHE . WILL MONITOR FOR EFFECTIVENESS
--- NOTE | 2017-08-29 02:18 | NUR ---
PRN TORADOL AND CATAPRES RE-ASSESSMENT PATIENT IN BED SLEEPING AT THIS TIME. NO FACIAL GRIMACING. RESPIRATION EVEN AND UNLABORED. WILL CONTINUE TO MONITOR
--- NOTE | 2017-08-29 04:00 | NUR ---
COWS AND CIWA DEFERRED PATIENT SLEEPING. RESPIRATION EVEN AND UNLABORED. VS REFUSED. SAFETY MEASURES IN PLACE. CALL LIGHT IN REACH. WILL CONTINUE TO MONITOR
--- NOTE | 2017-08-29 07:03 | NUR ---
END OF SHIFT NOTE PATIENT SLEPT 7 HOURS. FLUID INTAKE 500 ML. VOIDED X 1 . NO BM. MONITORED THROUGHOUT SHIFT. PATIENT COMPLIANT WITH MEDICATION AND TREATMENT PLAN. PATIENT COMPLETED MODIFIED SUBUTEX TAPER. PATIENT IS DISCHARGING TODAY. PATIENT WAS PRESENTED WITH ANXIETY , RESTLESSNESS , IRRITABILITY AND C/O TOOTHACHE 10/31. PRN ROBAXIN , TORADOL IM AND CLONIDINE GIVEN. SAFETY MEASURES IN PLACE. CALL LIGHT IN REACH. WILL CONTINUE TO MONITOR . LAST COWS 5 AND CIWA 5.
--- NOTE | 2017-08-29 07:05 | NUR ---
Start of Shift Body Stylist received report on 31 year old female admitted to [facility] on 08/25/17 for medical management of Benzodiazepine, Opiate and Methamphetamine withdrawals. Pt endorses NKA, full code and regular diet. Pt endorses a PMH of HTN, with no seizure history and PPH of anxiety and depression. Pt has completed a modified Subutex taper in anticipation of pts discharge this am. Pts last COWS 5 and CIWA 5, per NOC report. Pt administrered PRN: Toradol(IM)(OPain), Clonidine(anxiety) and Robaxin(muscle cramps) per NOC report. Body Stylist encounters pt in room resting with eyes closed with rise and f all of chest noted. Even and unlabored respirations. Bed in low position with wheels locked and side rails up x2. Will continue to monitor, support and encourage according to plan of care.
[2017-08-29 08:35] VITALS: BP 100/53
[2017-08-29] MEDS: PROPRANOLOL HCL 20 MG TABLET PO SCH (08:45)
[2017-08-29] MEDS: SULFAMETH/TRIMETH 800/160 MG TABLET PO SCH (09:10)
[2017-08-29] MEDS: LACTOBACILLUS RHAMNOSUS GG 1 EACH CAPSULE PO SCH (09:10)
[2017-08-29] MEDS: GABAPENTIN 300 MG CAPSULE PO SCH (09:10)
[2017-08-29] MEDS: CEPHALEXIN MONOHYDRATE 500 MG CAPSULE PO SCH (09:10)
[2017-08-29] MEDS: DOCUSATE SODIUM 250 MG CAPSULE PO SCH (09:10)
[2017-08-29] MEDS: BACLOFEN 10 MG TABLET PO SCH (09:10)
--- NOTE | 2017-08-29 09:10 | NUR ---
Needle Found Supervisor [employer] notified by Alejandra GARCIA of a capped, used Insulin syringe found in pt's bathroom. Supervisor Electronic Coils visualizes syringe. Pt adamantly denies ownership. Randy and management team aware and have received an order from DR. Nicholson for Stat [employer]. Will continue to monitor, support and encourage according to plan of care.
[2017-08-29] MEDS: VENLAFAXINE XR 150 MG CAP.SR.24H PO SCH (09:11)
[2017-08-29 12:22] LABS: *AMPHETAMINE, URINE NEGATIVE (NEGATIVE); *BARBITURATE, URINE NEGATIVE (NEGATIVE); *CANNABINOID, URINE NEGATIVE (NEGATIVE); *COCCAINE, URINE NEGATIVE (NEGATIVE); *OPIATE, URINE NEGATIVE (NEGATIVE); *PHENCYCLIDINE SCREEN,URINE NEGATIVE (NEGATIVE)
[2017-08-29 12:30] VITALS: BP 130/87
[2017-08-29] MEDS: ACETAMINOPHEN 325 MG TABLET PO PRN (14:39)
--- NOTE | 2017-08-29 14:45 | NUR ---
Discharge Pt discharge was on hold pending UDS after syringe found in pts room. UDS results were negative and RTC was informed and agreed to accept pt. Pt educated on discharge instructions to include ,medication, lab values and instructional material. Pt educated on timing, route and indication or medications. Pt provided with prescriptions for prescribed medications. Denies any further comments, questions or concerns. Educated on non-pharmacological interventions for anxiety and reviewed discharge instructional material. Pt is anxious, irritable and demanding. Medicated with Tylenol as discharging for toothache. Pt is A/O x4 and makes her needs known. Denies A/VH or HI/SI, or any other associated symptoms. VS stable, pt is stable condition. Pt discharges per ambulation to awaiting private car for transportation to RTC.
== END 2017-08-29 14:45 | disposition other institution (70) | DRG 895 ==
LOC: SRC 08-25 01:19
PROVIDERS: ADMIT Internal Medicine; ATTEND Internal Medicine
DX: F11.23 Opioid dependence with withdrawal (principal); F33.1 Major depressive disorder, recurrent, moderate; L03.113 Cellulitis of right upper limb; F13.239 Sedative, hypnotic or anxiolytic dependence with withdrawal, unspecified; F41.9 Anxiety disorder, unspecified; S51.831S Puncture wound without foreign body of right forearm, sequela; X78.8XXS Intentional self-harm by other sharp object, sequela; R26.81 Unsteadiness on feet; Z81.1 Family history of alcohol abuse and dependence; F90.9 Attention-deficit hyperactivity disorder, unspecified type; Z59.1 Inadequate housing; F15.220 Other stimulant dependence with intoxication, uncomplicated; E87.6 Hypokalemia; J45.909 Unspecified asthma, uncomplicated; K59.03 Drug induced constipation; F17.210 Nicotine dependence, cigarettes, uncomplicated
CPT/HCPCS: 36415; 70030-TC; 71045; 80307; 80324; 80346; 80361; 83690; 83735; 84443; 84703; 85025; 86580; 86592; 86705; 86803; 87340; 87806; G0480; J1885